=== PATIENT | female | born 1950 | race Caucasian/White ===

== ENCOUNTER 2016-08-14 19:50 | Emergency (ER) | payer OTHER, MEDICARE ==
[2016-08-14 19:57] VITALS: TEMP 98.4
--- NOTE | 2016-08-14 19:58 | EDPHY ---
H & P Stated Complaint: pt says bitten by sister's dog on R hand, skin tear on back of hand Source: Patient - Personal History Current Tetanus Diphtheria and Acellular Pertussis (TDAP): Yes - Medical/Surgical History Hx Asthma: No Hx Chronic Respiratory Disease: No Hx Diabetes: No Hx Cardiac Disease: Yes Hx Renal Disease: No Hx Cirrhosis: No Hx Alcoholism: No Hx HIV/AIDS: No Hx Splenectomy or Spleen Trauma: No Other PMH: hypertension, acl recon R knee, L total knee, appendectomy, hysterectomy, rotator cuff surg - Social History Smoking Status: Never smoked HPI/ROS: HPI CHIEF COMPLAINT: Dog bite right hand HISTORY OF PRESENT ILLNESS: This patient very pleasant 66-year-old female, denies any significant medical history, up-to-date on her tetanus shot, she presents emergency room after her sister's dog bit her in the right hand. She sustained a rather large skin tear to the web space between her 1st and 2nd digit. She denies significant pain at this time. Past Medical History: No significant medical history Past Surgical History: Hysterectomy, knee surgery Social History: Denies daily use of drugs alcohol tobacco products Family History: Noncontributory ROS REVIEW OF SYSTEMS: A comprehensive 10 point review of systems is otherwise negative aside from elements mentioned in the history of present illness. Exam Constitutional triage nursing summary reviewed, vital signs reviewed, awake/ alert. Eyes normal conjunctivae and sclera, EOMI, PERRLA. HENT normal inspection, atraumatic, moist mucus membranes, no epistaxis, neck supple/ no meningismus, no raccoon eyes. Respiratory clear to auscultation bilaterally, normal breath sounds, no respiratory distress, no wheezing. Cardiovascular rate normal, regular rhythm, no murmur, no edema, distal pulses normal. Gastrointestinal soft, non-tender, no rebound, no guarding, normal bowel sounds, no distension, no pulsatile mass. Genitourinary no CVA tenderness. Musculoskeletal no midline vertebral tenderness, full range of motion, no calf swelling, no tenderness of extremities, no meningismus, good pulses, neurovascularly intact. Skin right hand: 4 cm x 4 cm, skin tear to the web space dorsum of the hand, between 1st and 2nd digit. Otherwise neurovascular intact. No significant bleeding no tendon injury no arterial injury. Neurologic awake, alert and oriented x 3, AAOx3, moves all 4 extremities equally, motor intact, sensory intact, CN II-XII intact, normal cerebellar, normal vision, normal speech. Psychiatric normal mood/affect. Heme/Lymph/Immune no lymphadenopathy. Differential Diagnosis: Plan for this patient x-ray right hand rule foreign body or bony abnormality, tetanus shot is already updated. 1st dose of Augmentin given here in the emergency room. The wound will be copiously cleaned out. And loosely tacked down as it is a rather large skin tear. Patient need to stay in a splint Velcro. Medical Decision Making: Patient understands watch her wound closely for signs of infection. Take Augmentin as prescribed. Take it with food not empty stomach. Stay in splint Velcro for comfort and protection. Watch her wound closely. She understands. ED x-ray right: Negative for acute fracture. Or bony abnormality. No foreign body. (Ignacio To) Constitutional: Initial Vital Signs Temperature (C) 98.4 F 08/14/16 19:52 Heart Rate 84 08/14/16 19:52 Respiratory Rate 16 08/14/16 19:52 Blood Pressure 146/85 H 08/14/16 19:52 O2 Sat (%) 93 08/14/16 19:52 O2 Delivery Mode Room Air Allergies/Adverse Reactions: ranitidine [From Zantac] Allergy (Verified 08/14/16 19:57) Home Medications: Medication Instructions Recorded Amoxicillin/Clavulanate Pot 875 mg PO BID #14 tab 08/14/16 [Augmentin 875 MG TAB (*)] CeleBREX 08/14/16 Hydrocodone/APAP 5/325 [Ellsworth 1 - 2 tab PO Q4H PRN #10 tab 08/14/16 5/325] IMITREX 08/14/16 Propranolol HCl 08/14/16 Medical Decision Making Procedures: My involvement of care this patient for the procedure only. Please see the note of Dr. To for all other aspects of care PROCEDURE: Loose laceration repair Indication: Dog bite Consent: Verbal Location: Dorsum of the right hand Length of repair: 4 cm, v-shaped Complexity: Complex Layer involvement: Single Anesthesia: Local, 1% lidocaine without epinephrine, 5 mL Irrigation: Extensive Debridement: None Procedure description: Following good anesthesia, the wound was copiously irrigated. Wound bed was explored and there is no foreign body noted. Wound was loosely approximated due to the nature of the dog bite. The corners were approximated well. There are several areas of non sutured laceration to allow drainage. Suture/Staple: 5-0 Prolene, material 5 simple interrupted sutures Wound care: Routine as discussed Suture/Staple removal: 7-10 Days (Pedro Lay) - Data Points Medications Given: Discontinued Medications Amoxicillin/Clavulanate Potassium (Augmentin 875mg) 875 mg PO EDNOW ONE PRN Reason: Protocol Stop: 08/14/16 20:06 Last Admin: 08/14/16 20:56 Dose: 875 mg Departure - Departure Disposition: Home, Routine, Self-Care Clinical Impression: Skin tear Dog bite Qualifiers: Encounter type: initial encounter Qualified Code(s): W54.0XXA - Bitten by dog, initial encounter Condition: Good Instructions: Animal Bite (ED), Skin Tear (ED) Additional Instructions: 1. Watch your wound closely for infection this includes increasing swelling, redness, pain, pus or fever 2. Your sutures need to be removed in 12-14 days. 3. Keep her wound clean, dry, protected. Warm soapy water when he showers okay but nothing directly in the wound. 4. Stay in her splint for protection and comfort. 5. Complete her antibiotics as prescribed. Take a yogurt or probiotics with this can cause diarrhea. Try to take it with food. Referrals: AMY SALAZAR [Other] - As per Instructions Prescriptions: Amoxicillin/Clavulanate Pot [Augmentin 875 MG TAB (*)] 875 mg PO BID #14 tab Hydrocodone/APAP 5/325 [Ellsworth 5/325] 1 - 2 tab PO Q4H PRN #10 tab PRN Reason: Pain, Moderate
[2016-08-14] MEDS ORDERED: AMOXICILLIN/CLAVULANATE POT 875/125 MG TAB PO ONE (20:05)
[2016-08-14 21:07] VITALS: BP 123/78; PULSE 81; RESP 18; O2SAT 95
== END 2016-08-14 21:18 | disposition home or self-care (01) ==
PROC: 0HQFXZZ Repair Right Hand Skin, External Approach (ICD-10-PCS; principal; 2016-08-14)
DX: S61.411A Laceration without foreign body of right hand, initial encounter (principal); I10 Essential (primary) hypertension; W54.0XXA Bitten by dog, initial encounter
CPT/HCPCS: 12002; 73130; 99284; L3807

== ENCOUNTER 2016-08-19 20:03 | Emergency (ER) | payer OTHER, MEDICARE ==
[2016-08-19 20:18] VITALS: BP 125/79; PULSE 70; RESP 18; TEMP 97.7; O2SAT 98
--- NOTE | 2016-08-19 20:30 | EDPHY ---
H & P Time Seen by Provider: 08/19/16 20:22 HPI/ROS: CHIEF COMPLAINT: Recheck dog bite right hand HISTORY OF PRESENT ILLNESS: 66-year-old female seen the ER 5 days ago status post dog bite to right hand which point she had sutures placed, on antibiotics, told to return to the ER for wound recheck. She states that she has been taking antibiotics as directed, no complaints of pain or discomfort. She has been wearing a Velcro volar splint as directed. PHYSICAL EXAM (Prior to examination, patient consented to physical exam, hands were washed and my usual and customary physical exam procedures followed) 1) GENERAL: Well-developed, well-nourished, alert and oriented. Appears to be in no acute distress. 2) HEAD: Normocephalic 3) HEENT: sclera anicteric 4) LUNGS: Breathing comfortably. 5) SKIN: on the dorsal aspect of the patient's right hand she has sutures in place with a well granulating wound with no signs of infection no erythema no foul smell smell, no lymphangitic streaking, no crepitus, negative kanavel sign. 6) MUSCULOSKELETAL: Full range of motion 7) NEUROLOGIC: Full sensation Smoking Status: Never smoked Constitutional: Initial Vital Signs Temperature (C) 36.5 C 08/19/16 20:16 Heart Rate 70 08/19/16 20:16 Respiratory Rate 18 08/19/16 20:16 Blood Pressure 125/79 H 08/19/16 20:16 O2 Sat (%) 98 08/19/16 20:16 O2 Delivery Mode Room Air Allergies/Adverse Reactions: ranitidine [From Zantac] Allergy (Verified 08/19/16 20:14) Home Medications: Medication Instructions Recorded Amoxicillin/Clavulanate Pot 875 mg PO BID #14 tab 08/14/16 [Augmentin 875 MG TAB (*)] CeleBREX 08/14/16 IMITREX 08/14/16 Propranolol HCl 08/14/16 Est/Test/Prog Compound 08/19/16 Estrogen Vag Insert 08/19/16 Omeprazole 08/19/16 MDM/Departure - MDM ED Course/Re-evaluation: This patient's wound is granulating/healing appropriately with no signs of infection. Recommend she continue antibiotics until finished and return to the ER in 5 days for suture removal which will be a total of 10 days post suture placement. Usual and customary wound precautions instructions provided.Care and management in consultation with secondary supervising physician Dr Leal . - Depart Disposition: Home, Routine, Self-Care Clinical Impression: Encounter for wound re-check Condition: Good Instructions: Animal Bite (ED) Additional Instructions: Keep taking your antibiotics as directed until finished.Return to the ER if you develop redness, swelling, discharge, warmth to the wound, red streaks going up your arm , or any other symptoms that concern you. Referrals: Return, to the ER in 5 days for suture removal [Other] - 08/24/16
== END 2016-08-19 20:46 | disposition home or self-care (01) ==
DX: Z48.01 Encounter for change or removal of surgical wound dressing (principal)
CPT/HCPCS: G0463

== ENCOUNTER → 2017-03-07 | Outpatient (CLI) | payer OTHER, MEDICARE | LOC: BMCIMAGING 10:59 | PROVIDERS: ATTEND Family Medicine | DX: R91.8 Other nonspecific abnormal finding of lung field (principal); R07.9 Chest pain, unspecified; R53.1 Weakness ==

== ENCOUNTER → 2017-03-07 | Outpatient (CLI) | payer OTHER, MEDICARE | LOC: FIMAGING 11:51 | PROVIDERS: ATTEND Family Medicine | DX: R91.8 Other nonspecific abnormal finding of lung field (principal); R07.9 Chest pain, unspecified; R53.1 Weakness; K76.89 Other specified diseases of liver ==

== ENCOUNTER → 2018-05-16 | Outpatient (CLI) | payer OTHER, MEDICARE ==
[~2018-05-16] MED LIST: IOPAMIDOL (ISOVUE-300) 100 ML BTL ONE
== END ==
LOC: FIMAGING 13:12
PROVIDERS: ATTEND Internal Medicine
DX: K76.89 Other specified diseases of liver (principal)
CPT/HCPCS: 74177; Q9967

== ENCOUNTER → 2018-07-18 | Outpatient (CLI) | payer OTHER, MEDICARE | LOC: BMCIMAGING 08:58 ==

== ENCOUNTER → 2018-07-20 | Outpatient (CLI) | payer OTHER, MEDICARE | LOC: FIMAGING 10:19 ==